=== PATIENT | female | born 1990 | race Two or more races ===

== ENCOUNTER 2023-09-18 01:33 | Emergency (ER) | payer SELFPAY ==
[~2023-09-18] VITALS: Ht 170.2 cm; Wt 90.0 kg
[2023-09-18 01:58] VITALS: PULSE 91; RESP 20; TEMP 98.1; O2SAT 96
[2023-09-18] MEDS ORDERED: IOHEXOL 300 MG/ML 100ML BOTTLE IJ ONE (02:55)
[2023-09-18 03:05] LABS: Basophils # (auto) 0.1 10 ^3/uL (0-0.2); Basophils % (auto) 1.2 % (0.0-2.0); Eosinophils # (auto) 0 10 ^3/uL (0-0.8); Hematocrit 43.5 % (36.0-46.0); Lymphocytes # (auto) 2.5 10 ^3/uL (0.4-5.4); Lymphocytes % (auto) 37.9 % (10.0-50.0); Mean Corpuscular Hemoglobin 32.5 pg (28.0-32.0); Mean Corpuscular Hgb Conc. 34.5 g/dL (32.0-36.0); Mean Corpuscular Volume 94.2 fL (80.0-100.0); Monocytes # (auto) 0.4 10 ^3/uL (0-1.3); Monocytes % (auto) 5.9 % (0.0-12.0); Neutrophils # (auto) 3.6 10 ^3/uL (1.6-8.6); Red Blood Cells 4.62 10^6/uL (4.0-5.20); Red Cell Distribution Width 13.2 % (11.8-14.3); White Blood Cell 6.5 10^3/uL (4.4-10.8)
[2023-09-18] MEDS ORDERED: LACTATED RINGER'S 1,000 ML IV ONE ×2 (03:15→04:15)
[2023-09-18 03:25] LABS: Acetaminophen < 2.0 UG/ML (10.0-20.0); Alanine Aminotransferase 26 U/L (7-40); Albumin 4.7 g/dL (3.2-4.8); Alkaline Phosphatase 77 U/L (46-116); Anion Gap 11 (5-15); Aspartate Aminotransferase 22 U/L (13-40); BUN/Creatinine Ratio 6.7 (10.0-20.0); Bilirubin, Total 0.3 mg/dL (0.2-1.0); Blood Alcohol 286.3 mg/dL (<10); Blood Urea Nitrogen 5 mg/dL (9-23); Carbon Dioxide 22 mmol/L (20-30); Chloride 110 mmol/L (98-107); Glucose 125 mg/dL (74-106); Potassium 3.8 mmol/L (3.5-5.1); Sodium 143 mmol/L (136-145); Total Protein 7.4 g/dL (5.7-8.2)
[2023-09-18 03:27] LABS: Salicylate < 3.0 mg/dL (2.8-20.0)
[2023-09-18 04:14] LABS: INR 1.03 (0.9-1.15); Partial Thromboplastin Time 27.6 SEC (24.5-34.5); Prothrombin Time 10.8 sec (9.3-11.8)
[2023-09-18 04:45] LABS: Urine Bacteria NONE SEEN /hpf (None Seen); Urine Blood Negative /uL (Negative); Urine Clarity Clear (Clear); Urine Color Straw (Yellow); Urine Protein, UAD Negative (Negative); Urine Urobilinogen Normal (Negative); Urine WBC 1 /hpf (0 - 5); Urine pH 5.5 (5.0-8.0)
[2023-09-18 07:52] VITALS: BP 122/81; PULSE 99; RESP 18; O2SAT 96
== END 2023-09-18 08:00 | disposition home or self-care (01) ==
LOC: EDBD 01:33 → ER 01:33
DX: M54.50 Low back pain, unspecified (principal); M54.2 Cervicalgia; V49.49XA Driver injured in collision with other motor vehicles in traffic accident, initial encounter; Y93.I9 Activity, other involving external motion; Y92.413 State road as the place of occurrence of the external cause; Y99.8 Other external cause status
CPT/HCPCS: 36415; 70450; 71260; 72125; 74177; 80053; 80320; 80329; 81001; 85025; 85610; 85730; 96360; 96361; 99285; Q9967